=== PATIENT | female | born 1990 | race African-American/Black ===

== ENCOUNTER 2023-12-17 19:05 | Emergency (ER) | payer SELFPAY ==
[2023-12-17 20:21] VITALS: BP 126/77; PULSE 69
[2023-12-17] MEDS: Lidocaine 2% Viscous Solution 15 ML UD PO ONE (21:23)
[2023-12-17] MEDS: Benzocaine 20% Topical Spray UD ONE (21:24)
[2023-12-17] MEDS: oxyCODONE 5 MG Tab PO ONE (21:24)
[2023-12-17] MEDS: Amoxicillin/Clavulanate K 875-125 MG Tab PO ONE (21:24)
[2023-12-17] MEDS: Benzocaine 20% Topical Spray UD MUCMEM ONE (21:24)
[2023-12-17] MEDS: oxyCODONE 5 MG/5 ML Cup PO ONE (21:25)
== END 2023-12-17 21:27 | disposition home or self-care (01) ==
LOC: MW.ED 19:05
DX: K04.7 Periapical abscess without sinus (principal); Z75.8 Other problems related to medical facilities and other health care
CPT/HCPCS: 99282; A9270; 99283

== ENCOUNTER 2024-04-22 11:57 | Emergency (ER) | payer OTHER ==
[2024-04-22 12:38] LABS: APPEARANCE,URINE CLEAR; BILIRUBIN,URINE NEGATIVE (NEGATIVE); COLOR,URINE YELLOW; GLUCOSE,URINE NEGATIVE (NEGATIVE); KETONES,URINE NEGATIVE (NEGATIVE); LEUKOCYTE ESTERASE,URINE TRACE (NEGATIVE); NITRITE,URINE NEGATIVE (NEGATIVE); OCCULT BLOOD,URINE NEGATIVE (NEGATIVE); PH,URINE 6.5 (5.0-8.0); PROTEIN,URINE NEGATIVE (NEGATIVE); UROBILINOGEN,URINE 0.2 EU/dL (<2.0)
[2024-04-22 12:44] LABS: BASOPHILS ABSOLUTE AUTO 0.04 K/uL (0.00-0.20); BASOPHILS PERCENT AUTO 0.6 % (0.0-1.0); EOSINOPHILS ABSOLUTE AUTO 0.25 K/uL (0.00-0.45); EOSINOPHILS PERCENT AUTO 3.8 % (0.0-6.0); HEMATOCRIT 38.3 % (37.0-47.0); HEMOGLOBIN 11.7 g/dL (12.0-16.0); IMMATURE GRAN ABSOLUTE AUTO 0.02 K/uL (0.00-0.05); IMMATURE GRAN PERCENT AUTO 0.3 % (0.0-0.4); LYMPHOCYTES ABSOLUTE AUTO 1.38 K/uL (1.00-4.80); LYMPHOCYTES PERCENT AUTO 20.9 % (24.0-44.0); MEAN CORPUSCULAR HEMOGLOBIN 22.9 pg (28.0-32.0); MEAN CORPUSCULAR HGB CONC 30.5 g/dL (32.0-36.0); MEAN CORPUSCULAR VOLUME 75.1 fL (83.0-99.0); MEAN PLATELET VOLUME 10.2 fL (9.4-12.3); MONOCYTES ABSOLUTE AUTO 0.66 K/uL (0.00-0.80); NEUTROPHILS ABSOLUTE AUTO 4.26 K/uL (1.80-7.70); NEUTROPHILS PERCENT AUTO 64.4 % (41.0-71.0); PLATELET COUNT,PLT 215 K/uL (150-400); WHITE BLOOD CELL COUNT,WBC 6.61 K/uL (3.9-11.3)
[2024-04-22 12:55] LABS: BACTERIA,URINE RARE (NEGATIVE); EPITHELIAL CELLS,URINE FEW (NONE-FEW); RBC,URINE 0-2 (0-2/HPF)
[2024-04-22 13:23] LABS: A/G RATIO 0.9 (0.9-1.6); ALBUMIN 3.6 g/dL (3.4-5.0); BILIRUBIN TOTAL 0.4 mg/dL (0.2-1.0); CALCIUM 8.7 mg/dL (8.5-10.1); CARBON DIOXIDE,CO2 23.4 mmol/L (21.0-32.0); CREATININE 0.8 mg/dL (0.6-1.0); EST CRCL DRUG DOSING (CG) 82.74 mL/min; POTASSIUM,K 3.8 mmol/L (3.5-5.1); PROTEIN TOTAL,TP 7.6 g/dL (6.4-8.2)
[2024-04-22 13:27] LABS: CANDIDA DNA PROBE NEGATIVE (NEGATIVE); GARDNERELLA DNA PROBE POSITIVE (NEGATIVE); TRICHOMONAS DNA PROBE NEGATIVE (NEGATIVE)
[2024-04-22 14:09] LABS: C. TRACHOMATIS BY PCR NOT DETECTED; N. GONORRHOEAE BY PCR NOT DETECTED
[2024-04-22] MEDS: metroNIDAZOLE 250 MG Tab PO ONE (14:18)
[2024-04-22 14:30] LABS: HIV12 AG/AB 4TH GEN W/REFLEX 0.1 INDEX (<1.0)
[2024-04-22 14:45] VITALS: BP 98/62; PULSE 62
== END 2024-04-22 14:44 | disposition home or self-care (01) ==
LOC: MW.ED 11:57
DX: N76.0 Acute vaginitis (principal); Z75.8 Other problems related to medical facilities and other health care; Z79.899 Other long term (current) drug therapy
CPT/HCPCS: 76856; 80053; 81001; 81025; 85025; 86592; 87086; 87389; 87480; 87491; 87510; 87591; 87660; 99284; A9270; 36415